=== PATIENT | male | born 1985 | race Two or more races ===

== ENCOUNTER 2019-04-25 09:34 | Emergency (ER) | payer OTHER ==
[2019-04-25] MEDS ORDERED: IBUPROFEN 800 MG TABLET PO ONE (10:42)
[2019-04-25] MEDS ORDERED: ONDANSETRON 4 MG TAB.RAPDIS PO ONE (10:42)
[2019-04-25] MEDS ORDERED: NORMAL SALINE 1000 ML 1,000 ML IV ONE ×2 (10:43→11:59)
--- NOTE | 2019-04-25 10:43 | ER Document Report ---
ED Medical Screen (RME) - General Stated Complaint: WEAKNESS Time Seen by Provider: 04/25/19 10:39 Primary Care Provider: LANCE LANDERS MD [Primary Care Provider] - Follow up as needed Notes: 33-year-old male presents with generalized weakness, fever, nausea/vomiting, abdominal pain, coughing up phlegm that started this morning. Patient is febrile in triage. Abd soft diffusely tender. Lungs clear to auscultation bilaterally. I have greeted and performed a rapid initial assessment of this patient. A comprehensive ED assessment and evaluation of the patient, analysis of test results and completion of the medical decision making process with be conducted by additional ED providers. - Related Data Allergies/Adverse Reactions: No Known Allergies Allergy (Verified 04/25/19 10:38) Physical Exam - Vital signs Vitals: Temp Pulse Resp BP Pulse Ox 101.5 F H 105 H 18 149/95 H 87 L 04/25/19 10:28 04/25/19 10:04/25/19 10:04/25/19 10:04/25/19 10:28 Course - Vital Signs Vital signs: Temp Pulse Resp BP Pulse Ox 101.5 F H 105 H 18 149/95 H 87 L 04/25/19 10:28 04/25/19 10:04/25/19 10:04/25/19 10:04/25/19 10:28 Doctor's Discharge - Discharge Referrals: LANCE LANDERS MD [Primary Care Provider] - Follow up as needed
[2019-04-25 11:08] LABS: HEMATOCRIT 47.3 % (37.9-51.0); HEMOGLOBIN 16.4 g/dL (13.5-17.0); MEAN CORPUSCULAR HEMOGLOBIN 30.9 pg (27.0-33.4); MEAN CORPUSCULAR HGB CONC 34.7 g/dL (32.0-36.0); MEAN CORPUSCULAR VOLUME 89 fl (80-97); PLATELET COUNT 210 10^3/uL (150-450); RED BLOOD COUNT 5.32 10^6/uL (4.35-5.55); RED CELL DISTRIBUTION WIDTH 12.4 % (11.5-14.0); WHITE BLOOD COUNT 8.7 10^3/uL (4.0-10.5)
[2019-04-25 11:27] LABS: A TYPE INFLUENZA AG NEGATIVE (NEGATIVE); B INFLUENZA AG NEGATIVE (NEGATIVE)
[2019-04-25 11:33] LABS: ALBUMIN 4.8 g/dL (3.5-5.0); ALKALINE PHOSPHATASE 86 U/L (38-126); ANION GAP 12 (5-19); ASPARTATE AMINO TRANSFERASE 24 U/L (17-59); BILIRUBIN,DIRECT 0.3 mg/dL (0.0-0.4); BILIRUBIN,TOTAL 0.7 mg/dL (0.2-1.3); BLOOD UREA NITROGEN 13 mg/dL (7-20); CARBON DIOXIDE 23 mmol/L (22-30); CHLORIDE 101 mmol/L (98-107); GLUCOSE 95 mg/dL (75-110); POTASSIUM 4.1 mmol/L (3.6-5.0); TOTAL PROTEIN 7.7 g/dL (6.3-8.2)
[2019-04-25 11:35] LABS: ABSOLUTE LYMPHOCYTES# (MANUAL) 0.3 10^3/uL (0.5-4.7); ABSOLUTE MONOCYTES # (MANUAL) 0.8 10^3/uL (0.1-1.4); BAND NEUTROPHILS % (MANUAL) 1 % (3-5); BASOPHILS % (MANUAL) 0 % (0-2); EOSINOPHILS % (MANUAL) 0 % (0-6); LYMPHOCYTES % (MANUAL) 4 % (13-45); MONOCYTES % (MANUAL) 9 % (3-13); PLATELET CLUMPS PRESENT; PLATELET COMMENT ADEQUATE; PLATELET LARGE PRESENT; RBC MORPHOLOGY COMMENT NORMO-CYTIC/CHROMIC; SEGMENTED NEUTROPHILS % (MAN) 86 % (42-78); TOTAL CELLS COUNTED 100
--- NOTE | 2019-04-25 12:09 | ER Document Report ---
ED General - General Chief Complaint: Fever Stated Complaint: WEAKNESS Time Seen by Provider: 04/25/19 10:39 Primary Care Provider: LANCE LANDERS MD [EMERITUS] - Follow up as needed TRAVEL OUTSIDE OF THE [place] IN LAST 30 DAYS: No - HPI Notes: Mr. Brandon is a 33-year-old previously healthy male presenting with a chief complaint of flulike illness with onset overnight. Initial symptom was dull headache followed by development of generalized myalgias, cough, sore throat, fever and general malaise. He is felt nauseated but has not vomited. Diminished oral intake today. No diarrhea. Reports his abdomen is "sore". - Related Data Allergies/Adverse Reactions: No Known Allergies Allergy (Verified 04/25/19 10:38) Past Medical History - General Information source: Patient, Relative - Social History Smoking Status: Never Smoker Chew tobacco use (# tins/day): No Frequency of alcohol use: daily Drug Abuse: None Lives with: Family Family History: Reviewed & Not Pertinent Patient has suicidal ideation: No Patient has homicidal ideation: No - Past Medical History Cardiac Medical History: Reports: None Pulmonary Medical History: Reports: None EENT Medical History: Reports: Other Other: Past history of sinus surgery Neurological Medical History: Reports: None Endocrine Medical History: Reports: None Renal/ Medical History: Reports: None Malignancy Medical History: Reports None GI Medical History: Reports: None Musculoskeletal Medical History: Reports None Psychiatric Medical History: Reports: None Traumatic Medical History: Reports: None Infectious Medical History: Reports: None Past Surgical History: Reports: Hx Herniorrhaphy, Other Other: Sinus surgery Review of Systems - Review of Systems Notes: Constitutional: As per HPI. HENT: As per HPI. Eyes: Eyes burning. Cardiovascular: Negative for chest pain. Respiratory: Yellow sputum. No hemoptysis. No dyspnea. Gastrointestinal: As per HPI. Genitourinary: Negative for dysuria. Musculoskeletal: Diffuse myalgias. Skin: Negative for rash. Neurological: Dull headache. 10 point ROS negative except as marked above and in HPI. Physical Exam - Vital signs Vitals: Temp Pulse Resp BP Pulse Ox 101.5 F H 105 H 18 149/95 H 87 L 04/25/19 10:28 04/25/19 10:28 04/25/19 10:28 04/25/19 10:28 04/25/19 10:28 - Notes Notes: GENERAL: Male patient of approximately stated age who appears uncomfortable but nontoxic. SKIN: Good turgor no rashes. HEAD: Normocephalic atraumatic. EYES: PERRLA. EOMI. Conjunctivae injected bilaterally. EARS: CANALS AND TMS CLEAR. NOSE: CLEAR. MOUTH: Moist mucosa. Good dentition. No stridor or edema. No drooling. Throat: Injected. NECK: Supple. No masses or thyromegaly. No adenopathy. Carotids 2+ without bruits. No JVD. BACK: Symmetrical with diffuse tenderness. CHEST: Dry cough present. Respirations unlabored. Breath sounds clear and sy mmetrical. HEART: Regular rhythm. No murmur gallop or rub. ABDOMEN: Abdominal wall tenderness. Soft without masses, organomegaly or rebound. Bowel sounds normally active. No bruits. GENITALIA: Deferred. EXTREMITIES: No edema. No calf tenderness. Cap refill less than 1.5 seconds. Dorsalis pedis and posterior tibial pulses 3+ and symmetrical. NEUROLOGICAL: GCS 15. Alert and oriented x3. Normal gait. Fluent speech. Cranial nerves II through XII intact. Sensorimotor and cerebellar normal. Normal tone. PSYCHIATRIC: Appropriate affect. Course - Re-evaluation Re-evalutation: 04/25/19 12:10 Patient was febrile on arrival here and tachycardic and looks like he might be mildly dehydrated. His O2 saturation at triage was documented 87% on room air. He did not appear in any respiratory distress when I saw him and I repeated the pulse oximetry with a value of 100% on room air and I therefore question the validity of the value stated at triage. I will nonetheless do a chest x-ray for this man. His CBC and chemistry profile are unremarkable. His rapid serologic screening for influenza a and B is negative. Patient is receiving additional IV fluids here and we will review the chest x- ray prior to disposition. 04/25/19 14:20 Chest x-ray shows a streaky infiltrate retrocardiac area left lung per radiologi st. I will go ahead and treat this man with some IV Rocephin here and anticipate sending him out on Zithromax with early primary care follow-up. - Vital Signs Vital signs: Temp Pulse Resp BP Pulse Ox 101.5 F H 105 H 18 149/95 H 87 L 04/25/19 10:28 04/25/19 10:28 04/25/19 10:28 04/25/19 10:28 04/25/19 10:28 - Laboratory Result Diagrams: 04/25/19 10:52 04/25/19 10:52 Laboratory results interpreted by me: 04/25/19 04/25/19 04/25/19 10:52 10:52 12:22 Seg Neuts % (Manual) 86 H Band Neutrophils % 1 L Lymphocytes % (Manual) 4 L Abs Lymphs (Manual) 0.3 L Sodium 136.2 L Urine Ketones TRACE H - Diagnostic Test Radiology reviewed: Reports reviewed - Streaky infiltrate retrocardiac area per radiologist. Discharge - Discharge Clinical Impression: Interstitial pneumonia, Dehydration Condition: Stable Disposition: HOME, SELF-CARE Instructions: Acetaminophen, Fever (OM) Additional Instructions: Dehydration Dehydration can result from vomiting or diarrhea, fever, or decreased intake of fluids. If severe, hospitalization and intravenous fluids may be required. Most cases are treated at home with fluids by mouth. For the next 24 hours, drink lots of clear fluids. In mild cases, this can be soda pop or sports drinks. For more severe dehydration, the doctor may recommend special fluids such as Pedialyte or Lytren. Try to get three liters (3 quarts) of fluid per day. If vomiting occurs, continue to drink the fluids frequently (every 15 to 20 minutes), but in small amounts (one or two ounces). Depending on the type of dehydration, the doctor may prescribe antinausea medicine or potassium replacements. Call the doctor or return for re-examination if you become progressively weak, vomit repeatedly, or have other new symptoms. Pneumonia Your examination indicates that you have pneumonia. This is an infection of the lung tissue, usually caused by bacteria or a virus. Symptoms include cough, fever, shaking chills, chest pain, shortness of breath, and coughing up bloody sputum. Treatment for bacterial pneumonia includes rest, antibiotics for 10 to 14 days, increasing your clear liquid intake, a cool mist humidifier at your bedside, and fever medication. Often, a repeat chest X-ray is performed in a few weeks--even if you feel better--to ascertain whether the infection has completely resolved and no underlying lung problem is present. You should call the physician if you develop persistent vomiting, high fever that does not respond to fever medication, increasing shortness of breath, confusion, or lethargy. Also, failure to improve within two to three days is an indication for re-examination. Take prescribed medication as directed. Along with this you may take Tylenol or Motrin as needed for fever. Increase oral fluids. You have been provided a work note for 3 days. You will be provided the name of a clinic for follow-up and should be seen within the next 2 to 3 days. Return here as needed for new or worsening symptoms: Shortness of breath Pain that is worsening or unimproved Uncontrolled vomiting High fever or shaking chills Overall worsening Prescriptions: Azithromycin [Zithromax 250 mg Tablet] 250 mg PO ASDIR PRN #6 tablet PRN Reason: Forms: Return to Work Referrals: LANCE LANDERS MD [EMERITUS] - Follow up as needed [facility] [Provider Group] - Follow up as needed
[2019-04-25] MEDS ORDERED: ACETAMINOPHEN WITH CODEINE #3 TABLET PO ONE (12:13)
[2019-04-25 12:49] LABS: APPEARANCE,URINE CLEAR; BILIRUBIN,URINE NEGATIVE (NEGATIVE); COLOR,URINE YELLOW; GLUCOSE, URINE NEGATIVE (NEGATIVE); KETONES,URINE TRACE mg/dL (NEGATIVE); PROTEIN,URINE NEGATIVE (NEGATIVE); URINE SPECIFIC GRAVITY 1.014; UROBILINOGEN,URINE NEGATIVE mg/dL (<2.0)
--- NOTE | 2019-04-25 13:29 | RADIOLOGY REPORT (SQ) ---
EXAM DESCRIPTION: CHEST 2 VIEWS COMPLETED DATE/TIME: 04/25/2019 1:20 pm REASON FOR STUDY: fever and cough COMPARISON: 06/02/2010 EXAM PARAMETERS: NUMBER OF VIEWS: two views TECHNIQUE: Digital Frontal and Lateral radiographic views of the chest acquired. RADIATION DOSE: NA LIMITATIONS: none FINDINGS: LUNGS AND PLEURA: No opacities, masses or pneumothorax. No pleural effusion. MEDIASTINUM AND HILAR STRUCTURES: No masses or contour abnormalities. HEART AND VASCULAR STRUCTURES: Heart normal size. No evidence for failure. BONES: No acute findings. HARDWARE: None in the chest. OTHER: No other significant finding. IMPRESSION: Mild streaky left retrocardiac opacity possibly pneumonia. No dense consolidation. No significant effusion. TECHNICAL DOCUMENTATION: JOB ID: [id number] [employer]- All Rights Reserved Reading location - IP/workstation name: [email or web address]
[2019-04-25] MEDS ORDERED: CEFTRIAXONE INJ 1000 MG VIAL IV ONE (13:41)
[2019-04-25 15:37] VITALS: BP 122/74
== END 2019-04-25 15:36 | disposition home or self-care (01) ==
LOC: ER 09:34
DX: J84.9 Interstitial pulmonary disease, unspecified (principal); E86.0 Dehydration; J02.9 Acute pharyngitis, unspecified; R50.9 Fever, unspecified; R53.1 Weakness; R11.0 Nausea; R51 Headache; M79.10 Myalgia, unspecified site; R00.0 Tachycardia, unspecified
CPT/HCPCS: 99284; 96361; 96365; 36415; 87070; 87880; 83690; 85025; 87077; 80053; 81001; 87804; 71046; S0119; J0696; J7030